=== PATIENT | male | born 1960 | race Caucasian/White ===

== ENCOUNTER 2017-04-21 15:07 | Emergency (ER) | payer OTHER ==
[2017-04-21 15:11] VITALS: BP 133/83; PULSE 90; TEMP 98.2; BMI 25.1
--- NOTE | 2017-04-21 15:14 | PDOC ---
Rapid Medical Evaluation Chief Complaint: Pain Time Seen by Provider: 04/21/17 15:12 Medical Evaluation: Allergies Allergy/AdvReac Type Severity Reaction Status Date / Time No Known Allergies Allergy Verified 04/21/17 15:08 Vital Signs Temp Pulse Resp BP Pulse Ox 98.2 F 90 18 133/83 100 04/21/17 15:08 04/21/17 15:08 04/21/17 15:08 04/21/17 15:08 04/21/17 15:08 04/21/17 15:13 Pt presents to the ED: left sided abd pain x 2 months, sent by pcp Dr. Rodriguez for ct and labs Pt on brief exam: vss, Pt ordered for: cbc, comp, lipase, lactic acid, ua, ucx Pt to proceed to the Emergency Dept Discharge Disposition - Diagnosis Abdominal pain - Referrals - Patient Instructions - Post Discharge Activity
[2017-04-21 15:36] LABS: BASO % 0.2 % (0-2.0); EOS # 0.3 # (0-4.5); EOS % 3.9 % (0-4.5); LYMPH # 1.7 (8-40); MCH 28.4 pg (25.7-33.7); MCHC 33.4 g/dl (32.0-35.9); MEAN CELL VOLUME 85.1 fl (80-96); MEAN PLT VOLUME 9.4 fl (7.5-11.1); MONO # 0.6 # (3.8-10.2); NEUT # 4.9 # (42.8-82.8); NEUT % 64.7 % (42.8-82.8); PLATELET COUNT 168 K/MM3 (134-434); RDW 13.9 % (11.9-15.9); URINE APPEARANCE CLEAR; URINE BILIRUBIN NEGATIVE (NEGATIVE); URINE BLOOD 1+ (NEGATIVE); URINE COLOR LTYELLOW; URINE GLUCOSE (UA) 3+ (NEGATIVE); URINE KETONE NEGATIVE (NEGATIVE); URINE LEUK ESTERASE NEGATIVE (NEGATIVE); URINE NITRITE NEGATIVE (NEGATIVE); URINE PROTEIN NEGATIVE (NEGATIVE); URINE UROBILINOGEN NEGATIVE mg/dL (0.2-1.0); WHITE BLOOD COUNT 7.6 K/mm3 (4.0-10.0)
[2017-04-21 15:59] LABS: ALBUMIN 4.3 g/dl (3.4-5.0); ALK PHOS 39 U/L (45-117); ANION GAP 10 (8-16); BILIRUBIN,TOTAL 0.6 mg/dL (0.2-1.0); CO2 28 mmol/L (21-32); CREATININE 1.1 mg/dL (0.7-1.3); GLUCOSE,RANDOM 228 mg/dL (74-106); SGOT/AST 13 U/L (15-37); SGPT/ALT 26 U/L (12-78); TOT PROT 7.6 g/dl (6.4-8.2)
[2017-04-21 16:00] LABS: URINE MUCUS RARE; URINE RBC <1 /hpf (0-3); URINE WBC <1 /hpf (3-5)
[2017-04-21 18:28] LABS: URINE LEUK ESTERASE Negative (NEGATIVE)
--- NOTE | 2017-04-21 20:25 | PDOC ---
History of Present Illness - General History Source: Patient Exam Limitations: No Limitations - History of Present Illness Initial Comments: 04/21/17 21:00 The patient is a year old female, with a significant PMH of HTN, hyperlipidemia , and insulin-dependent diabetes who presents to the emergency department after being sent by Dr. Rodriguez with 2 months of abdominal pain which has worsened over the past 2 weeks. He describes the abdominal pain as mostly left-sided with minimal radiation to the lower quadrants. The patient denies chest pain, shortness of breath, headache and dizziness. Denies fever, chills, vomit, diarrhea and constipation. Denies dysuria, frequency, urgency and hematuria. Allergies: NKA Past surgical history: None reported. Social history: Social alcohol use. No reported cigarette or drug use. PCP: Dr. Rodriguez <Joel Denis - Last Filed: 04/21/17 21:00> - General History Source: Patient <MoMoise sena - Last Filed: 04/22/17 01:28> - General Chief Complaint: Pain Stated Complaint: STOMACH PAIN Time Seen by Provider: 04/21/17 15:12 Past History <Joel Denis - Last Filed: 04/21/17 21:00> - Past Medical History COPD: No Diabetes: Yes HTN: Yes Hypercholesterolemia: Yes - Suicide/Smoking/Psychosocial Hx Smoking History: Never smoked Have you smoked in the past 12 months: No Information on smoking cessation initiated: No Hx Alcohol Use: Yes (social) Drug/Substance Use Hx: No Substance Use Type: None Hx Substance Use Treatment: No <Moise Rincon - Last Filed: 04/22/17 01:28> - Past Medical History Allergies/Adverse Reactions: Allergies Allergy/AdvReac Type Severity Reaction Status Date / Time No Known Allergies Allergy Verified 04/21/17 15:08 Home Medications: Ambulatory Orders Amlodipine/Atorvastatin [Amlodipine-Atorvast 5-20 mg] 1 each PO DAILY 01/10/15 Canagliflozin [Invokana] 300 mg PO DAILY 01/10/15 Glyburide/Metformin HCl [Glyburide-Metformin 5-500 mg] 1 each PO DAILY 01/10/15 Insulin (Levemir) [Levemir Vial] 15 unit SQ HS 01/10/15 Sitagliptin Phosphate [Januvia] 50 mg PO DAILY 01/10/15 Review of Systems - Review of Systems Able to Perform ROS?: Yes Comments:: 04/21/17 21:00 CONSTITUTIONAL: Absent: fever, chills, diaphoresis, generalized weakness, malaise, loss of appetite HEENT: Absent: rhinorrhea, nasal congestion, throat pain, throat swelling, difficulty swallowing, mouth swelling, ear pain, eye pain, visual Changes CARDIOVASCULAR: Absent: chest pain, syncope, palpitations, irregular heart rate, lightheadedness , peripheral edema RESPIRATORY: Absent: cough, shortness of breath, dyspnea with exertion, orthopnea, wheezing, stridor, hemoptysis GASTROINTESTINAL: (+) Abdominal pain. Absent: abdominal distension, vomiting, diarrhea, constipation, melena, hematochezia GENITOURINARY: Absent: dysuria, frequency, urgency, hesitancy, hematuria, flank pain, genital pain MUSCULOSKELETAL: Absent: myalgia, arthralgia, joint swelling SKIN: Absent: rash, itching, pallor HEMATOLOGIC/IMMUNOLOGIC: Absent: easy bleeding, easy bruising, lymphadenopathy, frequent infections ENDOCRINE: Absent: unexplained weight gain, unexplained weight loss, heat intolerance, cold intolerance NEUROLOGIC: Absent: headache, focal weakness or paresthesias, dizziness, unsteady gait, seizure, mental status changes, bladder or bowel incontinence PSYCHIATRIC: Absent: anxiety, depression, suicidal or homicidal ideation, hallucinations. <Joel Denis - Last Filed: 04/21/17 21:00> *Physical Exam - Vital Signs Last Vital Signs Temp Pulse Resp BP Pulse Ox 98.2 F 90 18 133/83 100 04/21/17 15:08 04/21/17 15:08 04/21/17 15:08 04/21/17 15:08 04/21/17 15:08 - Physical Exam Comments: 04/21/17 21:01 GENERAL: Well developed, well nourished. Awake and alert. No acute distress. HEENT: Normocephalic, atraumatic. PERRLA, EOMI. No conjunctival pallor. Sclera are non- icteric. Moist mucous membranes. Oropharynx is clear. NECK: Supple. Full ROM. No JVD. Carotid pulses 2+ and symmetric, without bruits. No thyromegaly. No lymphadenopathy. CARDIOVASCULAR: Regular rate and rhythm. No murmurs, rubs, or gallops. Distal pulses are 2+ and symmetric. PULMONARY: No evidence of respiratory distress. Lungs clear to auscultation bilaterally. No wheezing, rales or rhonchi. ABDOMINAL: (+) Mildly tender to the left upper through to lower quadrants. Soft. Non-tender. Non-distended. No rebound or guarding. No organomegaly. Normoactive bowel sounds. MUSCULOSKELETAL Normal range of motion at all joints. No bony deformities or tenderness. No CVA tenderness. EXTREMITIES: No cyanosis. No clubbing. No edema. No calf tenderness. SKIN: Warm and dry. Normal capillary refill. No rashes. No jaundice. NEUROLOGICAL: Alert, awake, appropriate. Cranial nerves 2-12 intact. No deficits to light touch and temperature in face, upper extremities and lower extremities. No motor deficits in the in face, upper extremities and lower extremities. Normoreflexic in the upper and lower extremities. Normal speech. Toes are down- going bilaterally. PSYCHIATRIC: Cooperative. Good eye contact. Appropriate mood and affect. <Joel Denis - Last Filed: 04/21/17 21:00> - Vital Signs Last Vital Signs Temp Pulse Resp BP Pulse Ox 98.2 F 90 18 133/83 100 04/21/17 15:08 04/21/17 15:08 04/21/17 15:08 04/21/17 15:08 04/21/17 15:08 <Moise Rincon - Last Filed: 04/22/17 01:28> ED Treatment Course - LABORATORY CBC & Chemistry Diagram: 04/21/17 15:15 04/21/17 15:15 - ADDITIONAL ORDERS Additional order review: Laboratory Results 04/21/17 04/21/17 04/21/17 15:15 15:15 15:15 Sodium 139 Potassium 4.4 Chloride 101 Carbon Dioxide 28 Anion Gap 10 BUN 14 D Creatinine 1.1 Creat Clearance w eGFR > 60 Random Glucose 228 H Lactic Acid 1.6 Calcium 9.0 Total Bilirubin 0.6 D AST 13 L D ALT 26 D Alkaline Phosphatase 39 L Total Protein 7.6 Albumin 4.3 Lipase 238 Urine Color Ltyellow Urine Appearance Clear Urine pH 5.0 Ur Specific [place] 1.029 Urine Protein Negative Urine Glucose (UA) 3+ H Urine Ketones Negative Urine Blood 1+ H Urine Nitrite Negative Urine Bilirubin Negative Urine Urobilinogen Negative Ur Leukocyte Esterase Negative Urine WBC (Auto) <1 Urine RBC (Auto) <1 Urine Mucus Rare 04/21/17 15:15 RBC 5.42 MCV 85.1 MCHC 33.4 RDW 13.9 MPV 9.4 Neutrophils % 64.7 Lymphocytes % 22.8 D Monocytes % 8.4 D Eosinophils % 3.9 Basophils % 0.2 <Joel Denis - Last Filed: 04/21/17 21:00> - LABORATORY CBC & Chemistry Diagram: 04/21/17 15:15 04/21/17 15:15 - ADDITIONAL ORDERS Additional order review: Laboratory Results 04/21/17 04/21/17 04/21/17 15:15 15:15 15:15 Sodium 139 Potassium 4.4 Chloride 101 Carbon Dioxide 28 Anion Gap 10 BUN 14 D Creatinine 1.1 Creat Clearance w eGFR > 60 Random Glucose 228 H Lactic Acid 1.6 Calcium 9.0 Total Bilirubin 0.6 D AST 13 L D ALT 26 D Alkaline Phosphatase 39 L Total Protein 7.6 Albumin 4.3 Lipase 238 Urine Color Ltyellow Urine Appearance Clear Urine pH 5.0 Ur Specific [place] 1.029 Urine Protein Negative Urine Glucose (UA) 3+ H Urine Ketones Negative Urine Blood 1+ H Urine Nitrite Negative Urine Bilirubin Negative Urine Urobilinogen Negative Ur Leukocyte Esterase Negative Urine WBC (Auto) <1 Urine RBC (Auto) <1 Urine Mucus Rare 04/21/17 15:15 RBC 5.42 MCV 85.1 MCHC 33.4 RDW 13.9 MPV 9.4 Neutrophils % 64.7 Lymphocytes % 22.8 D Monocytes % 8.4 D Eosinophils % 3.9 Basophils % 0.2 <Moise Rincon - Last Filed: 04/22/17 01:28> Medical Decision Making - Medical Decision Making 04/22/17 01:26 Dr. Rincon: The scribe's documentation has been prepared under my direction and personally reviewed by me in its entirery. I confirm that the note above accurately reflects all work, treatment, procedures, and medical decision making performed by me. Ct scan shows a single kidney stone in the left kidney. Otherwise scan is normal. Pt advised to follow with his pcp for re-evaluation as soon as possible. <Moise Rincon - Last Filed: 04/22/17 01:28> *DC/Admit/Observation/Transfer - Attestations Scribe Attestion: 04/21/17 21:01 Documentation prepared by Joel Denis, acting as medical imaging director for Moise Rincon DO. <Joel Denis - Last Filed: 04/21/17 21:00> - Discharge Dispostion Admit: No <Moise Rincon - Last Filed: 04/22/17 01:28> Diagnosis at time of Disposition: Abdominal pain, Kidney stone on left side - Discharge Dispostion Disposition: HOME Condition at time of disposition: Stable - Referrals Referrals: Siena Rodriguez MD [Primary Care Provider] - - Patient Instructions Printed Discharge Instructions: DI for Kidney Stones Additional Instructions: Please follow up with Dr. Rodriguez as soon as possible for re-evaluation. Continue taking all your usual medication. Return if any problems - Post Discharge Activity
[2017-04-21] MEDS ORDERED: morphine CARPU-JECT 2 MG/1 ML DISP.SYRIN IVPUSH ONE (20:26)
[2017-04-21] MEDS ORDERED: ONDANSETRON 4 MG/2 ML VIAL IVPUSH STA (20:26)
[2017-04-21] MEDS ORDERED: SODIUM CHLORIDE 1,000 ML IV STA (20:26)
[2017-04-21] MEDS ORDERED: morphine CARPU-JECT 10 MG/1 ML DISP.SYRIN ONE (22:06)
[2017-04-21] MEDS ORDERED: ONDANSETRON 4 MG/2 ML VIAL ONE (22:06)
== END 2017-04-22 01:40 | disposition home or self-care (01) ==
LOC: JER 15:07
PROC: 3E033NZ Introduction of Analgesics, Hypnotics, Sedatives into Peripheral Vein, Percutaneous Approach (ICD-10-PCS; principal; 2017-04-21)
PROC: 3E033GC Introduction of Other Therapeutic Substance into Peripheral Vein, Percutaneous Approach (ICD-10-PCS; 2017-04-21)
DX: N20.0 Calculus of kidney (principal); I10 Essential (primary) hypertension; E78.5 Hyperlipidemia, unspecified; E11.9 Type 2 diabetes mellitus without complications; Z79.4 Long term (current) use of insulin
CPT/HCPCS: 36415; 74177-TC; 80053; 81003; 81015; 83605; 83690; 85025; 87086; 99283-25; Q9967